=== PATIENT | female | born 1965 | race Caucasian/White ===

== ENCOUNTER → 2021-12-31 | Day surgery (SDC) | payer OTHER ==
[~2021-12-31] VITALS: Ht 165.1 cm; Wt 74.8 kg
[~2021-12-31] MED LIST: ASCORBIC ACID500 MG PO; ATORVASTATIN CA10 MG PO; BUPROPION XL150 MG PO; CELECOXIB200 MG PO; CENTRUM SILVER1 EAC1 PO; CLONAZEPAM0.5 MG PO; CYCLOBENZAPRINE10 MG PO; METOPROLOL SUCC50 MG PO; RALOXIFENE HCL60 MG PO; TRAMADOL HCL50 MG PO; VITAMIN D350 MC4 PO; ZINC50 M2 PO; ZYRTEC10 M3 PO
[2021-12-31 10:07] LABS: HCT 50.9 % (37.0-47.0); HGB 16.7 g/dl (12.5-16.0); MCHC 32.8 g/dL (32.0-36.0); MCV 94.6 fL (78.0-100.0); MPV 10.1 fL (6.0-9.5); RBC 5.38 M/uL (4.20-5.40); RDW 12.6 % (11.5-14.0); WBC 7.3 K/uL (4.0-10.5)
[2021-12-31 10:31] LABS: ALBUMIN 4.1 g/dL (3.4-5.0); BILIRUBIN - TOTAL 0.5 mg/dL (0.2-1.0); BUN/CREAT RATIO (CALC) 29.5 RATIO; CREATININE 0.88 mg/dL (0.51-0.95); GLOBULIN (CALCULATION) 3.7 g/dL; POTASSIUM 3.8 mmol/L (3.5-5.1); TOTAL PROTEIN 7.8 g/dL (6.4-8.2)
== END | disposition home or self-care (01) ==
LOC: FAS 09:00
PROVIDERS: Surgery
DX: K58.1 Irritable bowel syndrome with constipation (principal); K57.30 Diverticulosis of large intestine without perforation or abscess without bleeding; K63.89 Other specified diseases of intestine; E78.5 Hyperlipidemia, unspecified; I10 Essential (primary) hypertension; F17.210 Nicotine dependence, cigarettes, uncomplicated
CPT/HCPCS: 36415; 80053; J1610; J2250; J2704; J7120